=== PATIENT | male | born 1980 | race Caucasian/White ===

== ENCOUNTER → 2019-11-29 09:42 | Outpatient (CLI) | payer BC, SELFPAY | PROVIDERS: PCP Internal Medicine Adolescent Medicine; Visit Provider Internal Medicine Adolescent Medicine | DX: Z03.818 Encounter for observation for suspected exposure to other biological agents ruled out (principal) | CPT/HCPCS: U0003 ==

== ENCOUNTER → 2020-07-19 08:33 | Outpatient (CLI) | payer BC, SELFPAY ==
[2020-07-19 09:12] LABS: Basophils # 0.1 K/mm3 (0-0.2); Basophils % 0.5 % (0.1-2.0); Eosinophils # 0.2 K/mm3 (0.0-0.4); Eosinophils % 2.2 % (0.1-12.0); Hematocrit 41.3 % (42.0-52.0); Hemoglobin 14.1 g/dL (14.1-18.0); Lymphocytes # 2.8 K/mm3 (0.7-4.5); Lymphocytes % 27.2 % (10-50); Mean Corpuscular Volume 91.3 fl (80-94); Mean Platelet Volume 8.4 fl (7.4-10.4); Monocytes # 0.5 K/mm3 (0.1-1.0); Monocytes % 4.5 % (1.7-9.3); Neutrophils # 6.7 K/mm3 (1.8-7.8); Neutrophils % 65.7 % (37.0-80.0); Platelet Count 378 K/mm3 (142-424); Red Blood Count 4.53 M/mm3 (4.60-6.20); Red Cell Distribution Width 12.7 % (11.5-17.5); White Blood Count 10.2 K/mm3 (4.8-10.8)
[2020-07-19 09:36] LABS: Chloride 103 mmol/L (98-107)
[2020-07-19 09:37] LABS: Potassium 4.6 mmoL/L (3.5-5.1); Sodium 139 mmol/L (136-145)
[2020-07-19 09:39] LABS: Alanine Aminotransferase 55 U/L (12-78); Aspartate Amino Transferase 51 U/L (17-59); Blood Urea Nitrogen 16 mg/dl (9-20); Estimated Glomerular Filt Rate 75 ml/min (>60); GFR (African American) 91 ML/MIN (>60)
[2020-07-19 09:40] LABS: Albumin Level 4.7 g/dl (3.5-5.0); Albumin/Globulin Ratio 1.4 (1.1-1.8); Alkaline Phosphatase 77 U/L (38-126); Anion Gap 11.6 mEq/L (5-15); Bilirubin,Total 0.4 mg/dl (0.2-1.3); Calcium 9.4 mg/dl (8.4-10.2); Carbon Dioxide 29 mmol/L (22.0-30.0); Chol/HDL Ratio 5.8 (1-3.5); Cholesterol 161 mg/dl (140-200); Globulin 3.4 g/dL (1.3-3.2); Glucose 98 mg/dl (74-100); HDL Cholesterol 28 mg/dl (40-60); Total Protein,Serum 8.1 g/dl (6.3-8.2); Triglycerides 203 mg/dl (30-150); VLDL Cholesterol 41 mg/dL (0-40)
[2020-07-19 09:46] LABS: C-Reactive Protein 2.5 mg/L (0-4)
[2020-07-19 09:58] LABS: Erythrocyte Sedimentation Rate 16 mm/hr (0-15)
[2020-07-19 10:13] LABS: Thyroid Stimulating Hormone 0.35 uIU/mL (0.465-4.68)
[2020-07-19 10:42] LABS: 25-OH Vitamin D, Total 26.9 ng/mL (30-100)
[2020-07-19 11:13] LABS: Vitamin B12 350 pg/mL (239-931)
== END ==
PROVIDERS: Visit Provider Internal Medicine Adolescent Medicine
DX: Z00.00 Encounter for general adult medical examination without abnormal findings (principal); R53.1 Weakness; M12.9 Arthropathy, unspecified; E55.9 Vitamin D deficiency, unspecified
CPT/HCPCS: 36415; 80053; 80061; 82306; 82607; 84443; 85025; 85651; 86140

== ENCOUNTER → 2020-08-23 12:09 | Outpatient (CLI) | payer BC, SELFPAY | PROVIDERS: PCP Internal Medicine Adolescent Medicine; Visit Provider Internal Medicine Adolescent Medicine | DX: G47.30 Sleep apnea, unspecified (principal) | CPT/HCPCS: G0399 ==

== ENCOUNTER → 2020-09-02 09:41 | Outpatient (CLI) | payer BC, SELFPAY ==
--- NOTE | 2020-09-02 09:47 | XR_ITS ---
PROCEDURE: XR SHOULDER LT MIN 2V CLINICAL INDICATION: ACUTE PAIN OF LT SHOULDER COMPARISON: No exams were available for comparison FINDINGS: No fracture or dislocation. No lytic or blastic change. There is normal mineralization. The joint spaces are well-preserved. No significant degenerative/arthritic changes. No periarticular calcifications. No erosive changes evident. Other findings:Visualized left hemithorax is unremarkable. IMPRESSION: No acute findings. Dictated by: Lo Tompkins 09/02/2020 13:13 Lo Tompkins in [facility] 09/02/2020 13:13
== END ==
PROVIDERS: PCP Internal Medicine Adolescent Medicine; Visit Provider Internal Medicine Adolescent Medicine
DX: M25.512 Pain in left shoulder (principal)
CPT/HCPCS: 73030

== ENCOUNTER → 2022-10-21 06:48 | Outpatient (CLI) | payer BC, SELFPAY ==
--- NOTE | 2022-10-21 06:55 | NM_ITS ---
FINAL REPORT CLINICAL HISTORY: HYPERTHYROID 7:05 AM 340 UCI I123 WAS TAKEN ORALLY FINDINGS: THYROID SCAN AND UPTAKE: 340 ?Ci of I-123 was orally administered and a 5-hour uptake was performed. The relative uptake at that time was 53% in the right lobe and 47% in the left lobe. The uptake in the thyroid gland is homogeneous, and there is no evidence of areas of increased or decreased uptake. IMPRESSION: Abnormal homogeneous increased uptake at 5 hours, compatible with the patient's clinical diagnosis of hyperthyroidism. No focal abnormalities in uptake are present. Reviewed, Interpreted and Dictated by Brian Winters III, MD Transcribed by Gabrielle Carrillo Authenticated and . [facility]
== END ==
LOC: RAD 06:50
PROVIDERS: PCP Internal Medicine Adolescent Medicine; Visit Provider Internal Medicine Adolescent Medicine
DX: E03.9 Hypothyroidism, unspecified (principal)
CPT/HCPCS: 78014; A9516